=== PATIENT | female | born 1950 | race Caucasian/White ===

== ENCOUNTER 2017-06-09 04:48 | Inpatient (IN) | payer OTHER ==
[2017-05-22 12:42] VITALS: BMI 42.0
--- NOTE | 2017-05-29 12:47 | PAT Medication Instructions ---
Service Date May 29, 2017. Current Home Medication List Amlodipine (Norvasc), 10 MG PO QAM Furosemide (Lasix), 40 MG PO QAM PRN for SWELLING Metoprolol Succ (Toprol Xl) (Toprol-Xl ), 100 MG PO QAM Valsartan (Diovan), 320 MG PO QAM Medication Instructions For Your Scheduled Surgery - Hold the following medications the morning of surgery: Furosemide (Lasix), 40 MG PO QAM PRN for SWELLING Valsartan (Diovan), 320 MG PO QAM - Take the following medications the morning of surgery with a sip of water OTHERWISE NOTHING TO EAT OR DRINK AFTER MIDNIGHT: Metoprolol Succ (Toprol Xl) (Toprol-Xl ), 100 MG PO QAM Amlodipine (Norvasc), 10 MG PO QAM If you have any questions please call us at [phone] or [phone] or [phone]
[2017-05-29 13:35] LABS: BASO % 0.3 %; BASO ABS # 0.02 K/uL (0-0.2); COMPLETE YES; EOS % 1.8 %; HEMATOCRIT 43.6 % (37-47); IG% 0.3 %; LYMPH % 21.6 %; LYMPH ABS # 1.72 K/uL (1.2-3.4); MEAN CELL VOLUME 87.4 fL (80-100); MEAN CORPUSCULAR HEMOGLOBIN 29.1 pg (25-34); MEAN CORPUSCULAR HGB CONC 33.3 g/dl (32-36); MEAN PLATELET VOLUME 10.1 fL (7.4-10.4); MONO % 5.3 %; NEUT % 70.7 %; PLATELET COUNT 196 K/uL (130-400); RED BLOOD COUNT 4.99 M/uL (4.2-5.4); WHITE BLOOD COUNT 7.96 K/uL (4.8-10.8)
[2017-05-29 13:44] LABS: PROTHROMBIN TIME (PATIENT) 10.9 SECONDS (9.0-12.0)
--- NOTE | 2017-05-29 13:46 | DIAGNOSTIC IMAGING REPORT ---
TWO VIEW CHEST CLINICAL HISTORY: Preoperative examination. FINDINGS: PA and lateral chest radiographs are obtained. No prior studies are available for comparison at the time of dictation. The examination is degraded by large body habitus. The cardiomediastinal heart is top normal for projection. The mediastinal contour is within normal limits. There is bibasilar atelectasis. Nonspecific interstitial thickening is noted. No airspace consolidation is seen typical for pneumonia and there is no pleural effusion. There is no pneumothorax. The skeletal structures are osteopenic. The bony thorax appears intact. IMPRESSION: No active disease in the chest. Electronically signed by: Juan Peres M.D. 05/29/2017 1:44 PM Dictated Date/Time: 05/29/2017 1:44 PM
[2017-05-29 14:28] LABS: BUN/CREATININE RATIO 15.5 (10-20); CALCIUM 8.8 mg/dl (8.5-10.1); CREATININE 0.81 mg/dl (0.60-1.20); POTASSIUM 4.1 mmol/L (3.5-5.1)
--- NOTE | 2017-06-08 11:51 | History and Physical ---
History & Physical Date Jun 08, 2017. Chief Complaint LEFT KNEE PAIN History of Present Illness The patient is a 66 year old female with complaints of left knee pain for years. has already had injections and nsaids with no relief anymore. She is ready for Left TKA. Has a hx of bladder cancer. Additional History Hepatic Disease: No Endocrine Disorder: No Kidney Disease: No Hypertension: Yes Heart Disease: No Bleeding Tendencies: No Infectious Diseases: No Allergies Coded Allergies: No Known Allergies (Unverified , 05/22/17) Home Medications Scheduled Amlodipine (Norvasc), 10 MG PO QAM Metoprolol Succ (Toprol Xl) (Toprol-Xl ), 100 MG PO QAM Valsartan (Diovan), 320 MG PO QAM Scheduled PRN Furosemide (Lasix), 40 MG PO QAM PRN for SWELLING Physical Examination Skin: warm/dry, no rash Eyes: normal inspection, EOMI, sclerae normal ENT: normal ENT inspection, pharynx normal Head: normocephalic, atraumatic Neck: supple, no adenopathy, trachea midline Respiratory/Chest: lungs clear, normal breath sounds, no respiratory distress Cardiovascular: regular rate, rhythm, no edema, no murmur Abdomen / GI: normal bowel sounds, non tender Back: normal inspection Extremities: normal inspection, normal range of motion, + pertinent finding ( pain with rom left knee. Pain along medial joint line) Neurologic/Psych: no motor/sensory deficits, alert, normal reflexes, oriented x 3 Diagnosis DJD LEFT KNEE Plan of Treatment PLAN IS FOR ADMISSION AND UNDERGO LEFT TKA. PT WILL BE HOME DC AND ON XARELTO FOR DVT PROPHYLAXIS.
[~2017-06-09] VITALS: Ht 175.3 cm; Wt 129.6 kg
[2017-06-09] VITALS (11 sets, daily range): BP systolic 118–170; BP diastolic 72–93; PULSE 65–80; TEMP 36.5–36.8; O2SAT 94–100; Ht 175.3 cm; Wt 129.6 kg
[~2017-06-09 04:48] MED LIST: AMLO-114 PO; FRS/40 PO; METO100T44 PO; VALS320T PO
[2017-06-09] MEDS ORDERED: ROPIVACAINE 5MG/ML 30 ML 150 MG, BUPIVACAINE/EPINEPHR 0.5% MPF 30 ML, KETOROLAC TROMETH... INFIL SCH ×7 (06:00)
[2017-06-09] MEDS ORDERED: METOCLOPRAMIDE HCL 10 MG TAB PO SCH (06:00)
[2017-06-09] MEDS ORDERED: CeleBREX 200 MG CAP PO SCH (06:00)
[2017-06-09] MEDS ORDERED: FAMOTIDINE 20 MG TAB PO SCH (06:00)
[2017-06-09] MEDS ORDERED: LACTATED RINGER'S 1000ML IV SCH (06:00)
[2017-06-09] MEDS ORDERED: DEXAMETHASONE 4 MG TAB PO SCH (06:00)
[2017-06-09] MEDS ORDERED: LACTATED RINGER'S 1000ML 1,000 ML IV SCH (06:00)
[2017-06-09] MEDS ORDERED: ACETAMINOPHEN 500 MG TAB PO SCH (06:00)
[2017-06-09] MEDS ORDERED: CEFAZOLIN 3000MG IV PUSH 15 ML IV SCH (06:00)
[2017-06-09] MEDS ORDERED: LACTATED RINGER'S 1000ML 500 ML IV ONE (06:00)
[2017-06-09] MEDS ORDERED: MIDAZOLAM HCL 1 MG/ML 2ML VIAL ONE (06:23)
[2017-06-09] MEDS ORDERED: PROPOFOL IV EMULSION 10 MG/ML 20 ML VIAL IV ONE (06:23)
[2017-06-09] MEDS ORDERED: FENTANYL CITRATE INJ 50 MCG/1 ML 2 ML VIAL ONE (06:23)
[2017-06-09] MEDS ORDERED: LIDOCAINE HCL 2% 2 ML VIAL (20MG/ML) ONE (06:24)
[2017-06-09] MEDS ORDERED: ONDANSETRON INJ 2 MG/ML 2 ML VIAL ONE (06:24)
[2017-06-09] MEDS ORDERED: ORTHO JOINT ANESTHETIC ONE (06:29)
[2017-06-09] MEDS ORDERED: BACITRACIN 50000 UNIT VIAL ONE (06:30)
[2017-06-09] MEDS ORDERED: POVIDONE-IODINE OP SOLN 30 ML BTL ONE (06:30)
[2017-06-09] MEDS ORDERED: BUPIVACAINE 0.25% 30 ML VIAL ONE (06:38)
[2017-06-09] MEDS ORDERED: BUPIVACAINE 0.5 % 5 MG/1 ML PF 10ML VIAL ONE (06:38)
[2017-06-09] MEDS: TRANEXAMIC ACID INJ 1,000 MG in SODIUM CHLORIDE 0.9% 100ML 100 ML IV SCH ×2 (06:42→10:19)
--- NOTE | 2017-06-09 06:47 | History & Physical Bridge Note ---
H&P Re-Evaluation Bridge Note: I have examined the patient, reviewed the History & Physical and in the interval since the performance of the History & Physical I have noted the following changes of clinical significance: No changes noted
[2017-06-09] MEDS ORDERED: PHENYLEPHRINE 100MCG/ML 5ML SYR IV PRN (07:30)
[2017-06-09] MEDS ORDERED: ATROPINE SULFATE 0.1 MG/ML 5ML SYR IV PRN (07:30)
[2017-06-09] MEDS ORDERED: HYDROmorphone INJ 2 MG/ML SYR/VIAL IV PRN (07:30)
[2017-06-09] MEDS ORDERED: KETOROLAC TROMETHAMINE 30 MG/ML VIAL IV. PRN (07:30)
[2017-06-09] MEDS ORDERED: EpHEDrine SULFATE INJ 50 MG/ML AMP IV PRN (07:30)
[2017-06-09] MEDS ORDERED: ONDANSETRON INJ 2 MG/ML 2 ML VIAL IV PRN ×2 (07:30→08:15)
[2017-06-09] MEDS ORDERED: ZOLPIDEM TARTRATE 5 MG TAB PO PRN (08:15)
[2017-06-09] MEDS ORDERED: BISACODYL 10 MG SUPP PR PRN (08:15)
[2017-06-09] MEDS ORDERED: ALUMINUM/MAGNESIUM/SIMETH (MAALOX MAX) 30 ML UDC PO PRN (08:15)
[2017-06-09] MEDS ORDERED: MAGNESIUM HYDROXIDE SUSP 30 ML UDC PO PRN (08:15)
--- NOTE | 2017-06-09 08:20 | [facility] Operative Report ---
Operative Report Operative Date Jun 09, 2017. Pre-Operative Diagnosis Left knee degenerative joint disease Post-Operative Diagnosis Left knee degenerative joint disease Procedure(s) Performed Left total knee arthroplasty, cemented Surgeon Dr. Musa Nursing Associate Surgeon(s) Vinh Cramer PA-C, Clayton Jones DO Estimated Blood Loss 20 mL Findings As above Specimens A: Left knee bone and tissue Complication(s) None Disposition Recovery Room / PACU Description of Procedure IMPLANTS USED: Vernalis triathlon posterior stabilized size 3 cemented femoral component, a size 3 tibial component, a size 9 PS insert with size 35 all polyethylene patella (For a Maegan knee) INDICATIONS: pleasant (female) who has unfortunately failed all forms of conservative measures. Therefore, they have decided to undergo elective surgical intervention. All risks and benefits of the surgery were discussed with the patient and the family in entirety. PROCEDURE: The patient was brought to the operating room and properly identified by myself, anesthesia, and staff. Patient was given a spinal anesthesia and placed on the operating table in the supine position. Tourniquets were applied to the left upper thigh. The leg was then prepped and draped in usual sterile fashion. We made a standard midline approach over the patella and dissected down through the subcutaneous tissue to identify the capsule and performed a medial capsulotomy with the patella everted and the knee flexed. We then removed the spurs from around the femur and proximal tibia. I then put in a aircraft pilot hole in the femur, put the IM cutting guide into place in approximately 5 degrees of valgus, and then the distal femoral cut was made. The femur measure to be a size 3. This was then put into place. We made the appropriate cuts and then placed a retractor behind the proximal tibia to retract anteriorly. We then placed the extramedullary cutting guide in place , made sure we had the appropriate varus and valgus alignment and appropriate slope, and the proximal tibia cut was made. It measured to be a size 3. A size 3 guide was then put in place. We used the tibial punch then put the trial components into place. We had very good range of motion, excellent stability, and excellent patella tracking. We removed the trial components and irrigated the wound. We impacted the components in place using antibiotic cement. All excess cement was removed. We then irrigated the wound once more. We closed the capsule with 0 PDS suture, deep dermis with 2-0 Vicryl, and finally the skin with kinga. A sterile dressing was applied. The patient was taken to the recovery room in stable condition. Due to the complex nature of the procedure, the entire surgery was performed with the operational assistance of [the (GHASSAN)]. The account management assistant was under direct supervision, was involved in the actual performance of all aspects of the surgical procedure including hemostasis, tissue retraction and incision, instrument management, patient positioning, and wound closure. I attest to the content of the Intraoperative Record and any orders documented therein. Any exceptions are noted below.
[2017-06-09] MEDS: SODIUM CHLORIDE 0.9% 1000ML 1,000 ML IV SCH ×2 (09:50→17:58)
[2017-06-09] MEDS: PANTOprazole SOD 40 MG TAB PO SCH (10:53)
--- NOTE | 2017-06-09 11:02 | Anesthesiology Progress Note ---
Anesthesia Post Op Note Date & Time Jun 09, 2017 at 11:01 Vital Signs Pain Intensity: 0.0 Vital Signs Past 12 Hours Date Time Temp Pulse Resp B/P (MAP) Pulse Ox O2 Delivery O2 Flow Rate FiO2 06/09/17 10:37 36.5 65 16 118/73 (88) 97 2.0 06/09/17 10:07 36.6 68 18 120/77 (91) 100 Nasal Cannula 2.0 06/09/17 09:40 96 Nasal Cannula 2.0 06/09/17 09:40 96 Nasal Cannula 2.0 06/09/17 09:40 36.8 68 14 125/72 (89) 96 Nasal Cannula 2.0 06/09/17 09:30 74 18 148/77 100 Nasal Cannula 2 06/09/17 09:20 36.9 74 18 149/84 100 Nasal Cannula 2 06/09/17 09:10 73 18 138/72 100 Nasal Cannula 2 06/09/17 09:00 71 18 139/75 99 Nasal Cannula 2 06/09/17 08:51 36.3 72 18 134/62 99 Nasal Cannula 2 06/09/17 05:38 36.5 80 20 170/93 97 Room Air Notes Mental Status: alert / awake / arousable, participated in evaluation Pt Amnestic to Procedure: Yes Nausea / Vomiting: adequately controlled Pain: adequately controlled Airway Patency, RR, SpO2: stable & adequate BP & HR: stable & adequate Hydration State: stable & adequate Anesthetic Complications: no major complications apparent
[2017-06-09] MEDS: ACETAMINOPHEN 500 MG TAB PO SCH ×2 (13:40→21:57)
[2017-06-09] MEDS ORDERED: TRANEXAMIC ACID INJ 1,000 MG in SODIUM CHLORIDE 0.9% 100ML 100 ML IV SCH (14:00)
[2017-06-09] MEDS: OXYCODONE HCL IR 5 MG TAB (IMMEDIATE RELEASE) PO PRN (16:34)
[2017-06-09] MEDS ORDERED: RIVAROXABAN 10 MG TAB PO SCH (17:45)
[2017-06-09] MEDS: CEFAZOLIN IV 3,000 MG in SYRINGE 0 ML IV SCH (18:13)
[2017-06-09] MEDS: DOCUSATE SODIUM 100 MG CAP PO SCH (20:37)
[2017-06-10] MEDS: CEFAZOLIN IV 3,000 MG in SYRINGE 0 ML IV SCH ×2 (01:47→08:55)
[2017-06-10 03:11] VITALS: BP 154/86; PULSE 76; TEMP 36.7; O2SAT 95
[2017-06-10] MEDS: OXYCODONE HCL IR 5 MG TAB (IMMEDIATE RELEASE) PO PRN (03:39)
[2017-06-10] MEDS: SODIUM CHLORIDE 0.9% 1000ML 1,000 ML IV SCH (03:40)
[2017-06-10] MEDS: ACETAMINOPHEN 500 MG TAB PO SCH (05:42)
[2017-06-10 07:14] VITALS: BP 165/96; PULSE 73; TEMP 36.6; O2SAT 92
--- NOTE | 2017-06-10 07:19 | Anesthesiology Progress Note ---
Anesthesia Post Op Note Date & Time Jun 10, 2017 at 07:18 Vital Signs Pain Intensity: 5.0 Vital Signs Past 12 Hours Date Time Temp Pulse Resp B/P (MAP) Pulse Ox O2 Delivery O2 Flow Rate FiO2 06/10/17 07:14 36.6 73 16 165/96 (119) 92 Room Air 06/10/17 03:11 36.7 76 16 154/86 (108) 95 Room Air 06/09/17 23:45 Room Air 06/09/17 22:55 36.8 74 18 147/74 (98) 94 Room Air 06/09/17 20:32 94 Room Air Notes Mental Status: alert / awake / arousable, participated in evaluation Pt Amnestic to Procedure: Yes Nausea / Vomiting: adequately controlled Pain: adequately controlled Airway Patency, RR, SpO2: stable & adequate BP & HR: stable & adequate Hydration State: stable & adequate Neuraxial Anesthesia: was administered, sensory block resolved Anesthetic Complications: no major complications apparent
[2017-06-10] MEDS ORDERED: DEXAMETHASONE INJ 10 MG in SYRINGE 0 ML IV ONE (07:30)
--- NOTE | 2017-06-10 08:11 | Orthopedic Progress Note ---
Orthopedic Progress Note Date of Service Jun 10, 2017. Subjective Post OP Day: 1 Reports: feeling well, Denies: chest pain, SOB, nausea / vomiting, light headedness, calf pain Objective calves soft nontender, N/V intact, capillary refill less than 2 sec., dressing C /D/I, A&O x3, toes mobile, hemovac drainage (440/125cc per shift) Date Time Temp Pulse Resp B/P (MAP) Pulse Ox O2 Delivery O2 Flow Rate FiO2 06/10/17 07:14 36.6 73 16 165/96 (119) 92 Room Air 06/10/17 03:11 36.7 76 16 154/86 (108) 95 Room Air 06/09/17 23:45 Room Air 06/09/17 22:55 36.8 74 18 147/74 (98) 94 Room Air 06/09/17 20:32 94 Room Air 06/09/17 19:14 36.7 71 20 148/77 (100) 94 Room Air 06/09/17 15:45 94 Room Air 06/09/17 14:56 36.6 74 18 143/84 (103) 94 Room Air 06/09/17 12:40 36.6 69 16 145/84 (104) 98 2.0 06/09/17 11:41 36.5 74 19 126/74 (91) 97 Nasal Cannula 2.0 06/09/17 10:37 36.5 65 16 118/73 (88) 97 2.0 06/09/17 10:07 36.6 68 18 120/77 (91) 100 Nasal Cannula 2.0 06/09/17 09:40 96 Nasal Cannula 2.0 06/09/17 09:40 96 Nasal Cannula 2.0 06/09/17 09:40 36.8 68 14 125/72 (89) 96 Nasal Cannula 2.0 06/09/17 09:30 74 18 148/77 100 Nasal Cannula 2 06/09/17 09:20 36.9 74 18 149/84 100 Nasal Cannula 2 06/09/17 09:10 73 18 138/72 100 Nasal Cannula 2 06/09/17 09:00 71 18 139/75 99 Nasal Cannula 2 06/09/17 08:51 36.3 72 18 134/62 99 Nasal Cannula 2 Assessment & Plan Assessment: POD#1 sp left TKA Ho DVT Plan: PT/OT DVT proph- Xarelto Pain management- Jane, Tylenol, Celebrex DC planning- DC home today with OPPT DC dressing/drain
[2017-06-10] MEDS ORDERED: ACET-24 PO (08:17)
[2017-06-10] MEDS ORDERED: RXC5 PO (08:17)
[2017-06-10] MEDS ORDERED: XRL10 PO (08:17)
[2017-06-10] MEDS ORDERED: ONDA8TAB6 PO (08:17)
--- NOTE | 2017-06-10 08:20 | Discharge Instructions ---
Discharge Instructions Date of Service Jun 10, 2017. Admission Reason for Admission: Left Knee Osteoarthritis Discharge Discharge Diagnosis / Problem: sp left TKA Discharge Goals Goal(s): Decrease discomfort, Improve function, Increase independence Activity Recommendations Activity Limitations: per Instructions/Follow-up section . Instructions / Follow-Up Instructions / Follow-Up ACTIVITY RECOMMENDATIONS: SELF CARE INSTRUCTIONS AFTER TOTAL KNEE REPLACEMENT A. You may need to continue a physical therapy program after discharge from the hospital. There are several options available to you. Your doctor will assist you in selecting the best one for you. 1. An out-patient facility 2 to 3 times a week for therapy or home therapy. 2. Continue working on all exercises taught to you in the hospital. Your goals should be to increase bending of your knee to 90 degrees and beyond and to fully straighten your knee. B. You may progress at your own pace from walking with a walker or crutches to a cane; then to no assistive devices. C. Make walking a part of your daily routine. Be up as much as comfortable with rest periods throughout the day. Rest with leg elevation is very important. Use the ice wrap frequently for the first 3-4 weeks. D. There are no restrictions on activities. You may ride in a car, shop, participate in maintenance mechanic supervisor and all social activities. E. Wear the long elastic stockings (HAY hose) 20 hours a day for 2 weeks after surgery. They can be removed several times a day for laundering and for a bath. F. You may shower, no tub baths until cleared by your doctor. SPECIAL CARE INSTRUCTIONS: VERY IMPORTANT TO READ AND REVIEW A. There are a few signs you need to watch for after you are home. Call [facility] if you notice any of the followin. Increased severe knee pain. Some pain is expected especially when you exercise. 2. Increased swelling in your leg or knee; pain or swelling of the calf muscle in either lower leg. 3. Any fluid drainage from the incision. 4. Shortness of breath or chest pain. B. Please call [facility] at if you have any concerns or questions about your operation or recovery. The doctor or his nurse will return your call promptly. C. You must take antibiotics before dental work, bladder, bowel or other surgery. Your doctor will provide you with a permanent care to carry describing this precaution. IMPORTANT: * REMEMBER TO TAKE ASPIRIN, 81 MG, TWICE DAILY FOR 4 WEEKS UNLESS OTHERWISE DIRECTED. THIS IS YOUR BLOOD THINNER. * HIGH RISK PATIENTS MAY BE PRESCRIBED A STRONGER BLOOD THINNER. THIS WILL BE PROVIDED AT DISCHARGE. * CALL IF INCREASED PAIN, REDNESS, DRAINAGE OR FEVER GREATER THAT 101. * WEAR HAY HOSE 20 HOURS PER DAY FOR 2 WEEKS. * YOU MAY HAVE A LARGE BAND-AID LIKE DRESSING (SILVERON). THIS WILL REMAIN ON YOUR INCISION FOR 7 DAYS, THEN CAN BE REMOVED. IF INCISION IS LEAKING THROUGH DRESSING, CALL THE OFFICE . FOLLOW UP VISIT: If appointment is not already scheduled: Please call [facility] to make a follow-up appointment for 2 weeks after your surgery at . Current Hospital Diet Patient's current hospital diet: Regular Diet Discharge Diet Recommended Diet: Regular Diet Procedures Procedures Performed: Left total knee arthroplasty, cemented Pending Studies Studies pending at discharge: no Medical Emergencies . Who to Call and When: Medical Emergencies: If at any time you feel your situation is an emergency, please call [phone] immediately. . Non-Emergent Contact Non-Emergency issues call your: Surgeon . "Provider Documentation" section prepared by Renetta Vasquez. . VTE Core Measure Inpt VTE Proph given/why not?: Other Anticoagulation, T.E.D. Stockings, SCD's
[2017-06-10] MEDS: DOCUSATE SODIUM 100 MG CAP PO SCH (08:51)
[2017-06-10] MEDS: PANTOprazole SOD 40 MG TAB PO SCH (08:52)
[2017-06-10 10:56] VITALS: BP 138/79; PULSE 67; TEMP 36.5; O2SAT 97
[2017-06-10 11:38] VITALS: BP 138/79; PULSE 67; TEMP 36.5; O2SAT 97
--- NOTE | 2017-06-12 16:57 | DISCHARGE SUMMARY ---
DISCHARGE DIAGNOSIS: Degenerative joint disease, left knee. SECONDARY DIAGNOSIS: Hypertension. CONSULTS: None. COMPLICATIONS: None. PROCEDURES: Left total knee arthroplasty performed by Dr. Musa on 06/06/2017. BRIEF HISTORY: As dictated in history and physical in the history and physical. HOSPITAL SUMMARY: The patient was admitted on the above-noted date and had the above-noted surgery performed which she tolerated well. On the first postoperative day, she was feeling well and had no complaints. Calves were soft and nontender, neurovascularly intact. Dressings were clean, dry and intact. Toes were mobile. Vital signs were stable and she was afebrile. There was no evidence fluctuations in her systolic blood pressure, but she continued to remain stable and was started on physical therapy protocol and continued on DVT prophylaxis and pain management. Her physical therapy went well. She was remaining stable and ambulating independently, ambulating 325 feet x2 and obtaining 85 degrees of flexion in the knee and it was felt that she could be discharged to home. For further review, please see chart. LABORATORY AND X-RAY DATA: As per chart. DISCHARGE INSTRUCTIONS: The patient was discharged to home in satisfactory condition on 06/10/2017. DIET: Regular. ACTIVITY: Follow TK instruction sheets and special care instructions as noted and follow up with Dr. Musa in 2 weeks. The patient to call for appointment if one has not been made for you. DISCHARGE MEDICATIONS: Acetaminophen 1000 mg p.o. q. 8 hours for 30 days, Zofran 8 mg p.o. q. 8 hours p.r.n., oxycodone 5-10 mg p.o. q. 4 hours p.r.n., rivaroxaban 10 mg p.o. for 30 days, resume home meds as listed.
== END 2017-06-10 13:00 | disposition home or self-care (01) | DRG 470 ==
LOC: C.ACU 04:48 → C.3E 06:42 → ENRESERV 09:26
PROVIDERS: ADMIT Orthopaedic Surgery; ATTEND Orthopaedic Surgery
PROC: 0SRD0J9 Replacement of Left Knee Joint with Synthetic Substitute, Cemented, Open Approach (ICD-10-PCS; principal; 2017-06-09 07:00)
DX: M17.12 Unilateral primary osteoarthritis, left knee (principal); Z79.899 Other long term (current) drug therapy